=== PATIENT | female | born 1945 | race Hispanic/Latino ===

== ENCOUNTER 2017-05-14 03:40 | Inpatient (IN) | payer MEDICARE ==
[2017-05-14 04:52] LABS: Basophils % (Auto) 0.5 % (0.0-1.8); Eosinophils % (Auto) 5.6 % (0.0-4.3); Hematocrit 37.8 % (30.3-42.9); Hemoglobin 12.7 gm/dl (10.1-14.3); Mean Corpuscular HGB Conc 34 % (30-34); Mean Corpuscular Hemoglobin 29 pg (28-32); Mean Corpuscular Volume 85 fl (79-97); Platelet Count 211 K/mm3 (140-440); Red Blood Count 4.46 M/mm3 (3.65-5.03); Red Cell Distribution Width 13.8 % (13.2-15.2); White Blood Count 9.1 K/mm3 (4.5-11.0)
[2017-05-14 05:04] LABS: Anion Gap 15 mmol/L; BUN/Creatinine Ratio 33; Blood Urea Nitrogen 20 mg/dL (7-17); Calcium 9.3 mg/dL (8.4-10.2); Carbon Dioxide 30 mmol/L (22-30); Glucose 115 mg/dL (65-100); Potassium 3.9 mmol/L (3.6-5.0); Sodium 140 mmol/L (137-145)
[2017-05-14] MEDS ORDERED: REGLAN IV ONE (06:59)
[2017-05-14] MEDS ORDERED: BENADRYL IV ONE (06:59)
[2017-05-14] MEDS ORDERED: TORADOL IV ONE (06:59)
--- NOTE | 2017-05-14 07:34 | XRay Report ---
AP CHEST: HISTORY: chest pain AP view of the chest demonstrates a normal mediastinal and cardiac contour with clear lungs and normal bony and soft tissue structures. IMPRESSION: Unremarkable AP chest.
--- NOTE | 2017-05-14 07:37 | Cat Scan Report ---
CT HEAD WITHOUT CONTRAST: HISTORY: Hypertension, headache. TECHNIQUE: Sequential 2.5mm CT images. COMPARISON: none. FINDINGS: Cerebral Parenchyma: Within normal limits. Cerebellum: Within normal limits. Brainstem: Within normal limits. Ventricles: Normal. Sella: Normal. Extra-axial spaces: Normal. Basal Cisterns: Normal. Intracranial Hemorrhage: None. Midline Shift: None. Calvarium: Normal. Sinuses: Normal. Mastoid Air Cells: Normal. Visualized Orbits: Normal. IMPRESSION: Cranial CT scan within normal limits.
--- NOTE | 2017-05-14 07:43 | Emergency Department Report ---
ED Chest Pain HPI - General Chief Complaint: Chest Pain Stated Complaint: CP Time Seen by Provider: 05/14/17 06:07 Source: patient, EMS Mode of arrival: Stretcher Limitations: No Limitations - History of Present Illness Initial Comments: 71-year-old female with a past medical history dementia, diabetes, migraines, hypertension, and melanoma with lesion removed from back presents to the hospital with complaints of chest pain and uncontrolled hypertension. Patient has dementia and lives alone. She was alert and oriented 3 but does have some memory deficits. She cannot recall why she called EMS but states that her blood pressure was 236/110 upon their arrival. Patient states she was having a constant chest pressure that radiated to the back without aggravating or alleviating factors. Pain rated 9/10 in intensity. She denies shortness of breath, nausea, vomiting, diaphoresis, calf tenderness, or edema. Patient complains of a mild frontal headache and feels like a migraine is coming on in the light is hurting her eyes. Patient does not take aspirin daily. Aspirin 324 mg proceed prior to arrival. Patient denies a cardiac history. Severity scale (0 -10): 8 - Related Data Home Medications Medication Instructions Recorded Confirmed Last Taken Donepezil HCl 1 tab PO DAILY 09/18/13 09/18/13 09/22/13 Flaxseed Oil [Flax Seed Oil] 1 cap PO DAILY 09/18/13 09/18/13 09/22/13 Furosemide 1 tab PO DAILY 09/18/13 09/18/13 09/22/13 Losartan Potassium 1 tab PO DAILY 09/18/13 09/18/13 09/23/13 Metformin HCl 1 tab PO BID 09/18/13 09/18/13 09/22/13 Mv,Levi,Min/Iron/Folic Acid/Lut 1 tab PO DAILY 09/18/13 09/18/13 09/18/13 [Complete Multi Tablet] [place]-3/Dha/Epa/Lut/Zeaxanthin 1 cap PO DAILY 09/18/13 09/18/13 09/18/13 [Advanced Eye Health Softgel] Omeprazole 1 tab PO DAILY 09/18/13 09/18/13 09/18/13 Potassium Chloride [Klor-Con M20] 1 tab PO DAILY 09/18/13 09/18/13 09/18/13 Propranolol HCl [Inderal LA] 1 cap PO DAILY 09/18/13 09/18/13 09/22/13 glipiZIDE [Glipizide ER] 1 tab PO PRN 09/18/13 09/18/13 Unknown Allergies Allergy/AdvReac Type Severity Reaction Status Date / Time No Known Allergies Allergy Verified 05/14/17 04:07 Heart Score - HEART Score History: Slightly suspicious EKG: Non-specific Age: > 65 Risk factors: > 3 risk factors or hx of atherosclerotic disease Troponin: < normal limit HEART Score: 5 ED Review of Systems ROS: Stated complaint: CP Other details as noted in HPI Comment: All other systems reviewed and negative Other: Constitutional: No fevers chills Eyes: No eye pain visual changes ENT: No ear pain or throat pain Neck: Denies pain Respiratory: Denies cough wheezing shortness of breath Cardiovascular: Denies palpitations, syncope GI: Denies abdominal pain, nausea, vomiting, diarrhea : Denies dysuria Musculoskeletal: Denies back pain Skin: Denies rash, lesions, erythema Neurologic: Denies numbness, weakness Psychiatric: Denies suicidal ideation, hallucinations ED Past Medical Hx - Past Medical History Previous Medical History?: Yes Hx Hypertension: Yes ("OVER 20 YRS" PCP) Hx Diabetes: Yes Hx Headaches / Migraines: Yes (MIGRAINES) Hx Dementia: Yes - Surgical History Past Surgical History?: Yes Additional Surgical History: mylenoma removed from back. tonsils. hyster - Social History Smoking Status: Never Smoker Substance Use Type: None - Medications Home Medications: Home Medications Medication Instructions Recorded Confirmed Last Taken Type Donepezil HCl 1 tab PO DAILY 09/18/13 09/18/13 09/22/13 History Flaxseed Oil [Flax Seed Oil] 1 cap PO DAILY 09/18/13 09/18/13 09/22/13 History Furosemide 1 tab PO DAILY 09/18/13 09/18/13 09/22/13 History Losartan Potassium 1 tab PO DAILY 09/18/13 09/18/13 09/23/13 History Metformin HCl 1 tab PO BID 09/18/13 09/18/13 09/22/13 History Mv,Levi,Min/Iron/Folic Acid/Lut 1 tab PO DAILY 09/18/13 09/18/13 09/18/13 History [Complete Multi Tablet] [place]-3/Dha/Epa/Lut/Zeaxanthin 1 cap PO DAILY 09/18/13 09/18/13 09/18/13 History [Advanced [facility] Health Softgel] Omeprazole 1 tab PO DAILY 09/18/13 09/18/13 09/18/13 History Potassium Chloride [Klor-Con M20] 1 tab PO DAILY 09/18/13 09/18/13 09/18/13 History Propranolol HCl [Inderal LA] 1 cap PO DAILY 09/18/13 09/18/13 09/22/13 History glipiZIDE [Glipizide ER] 1 tab PO PRN 09/18/13 09/18/13 Unknown History ED Physical Exam - General Limitations: No Limitations - Other Other exam information: General: No limitations, patient is alert in no acute distress Head exam: Atraumatic, normocephalic Eyes exam: Normal appearance, ENT: Moist mucous membrane, normal oropharynx Neck exam: Normal inspection, full range of motion Respiratory exam: Clear to auscultation bilateral, no wheezes, rales, crackles Cardiovascular: Normal rate and rhythm, chest wall nontender Abdomen: Soft, nondistended, and nontender, with normal bowel sounds, no rebound, or guarding Extremity: Full range of motion normal inspection no deformity, no calf tenderness or leg edema Back: Normal Inspection, full range of motion, no tenderness Neurologic: Alert, oriented x3, cranial nerves intact, no motor or sensory deficit Psychiatric: normal affect, normal mood Skin: Warm, dry, intact ED Course Vital Signs 05/14/17 05/14/17 05/14/17 03:58 04:00 04:15 Pulse Rate 73 73 72 Respiratory 18 18 13 Rate Blood Pressure 187/83 187/83 173/76 O2 Sat by Pulse 97 98 95 Oximetry 05/14/17 05/14/17 05/14/17 04:30 04:45 05:00 Pulse Rate 69 73 68 Respiratory 19 10 L 19 Rate Blood Pressure 167/77 173/85 165/77 O2 Sat by Pulse 94 96 96 Oximetry 05/14/17 05/14/17 05/14/17 05:15 05:30 05:45 Pulse Rate 67 65 67 Respiratory 14 18 22 Rate Blood Pressure 176/84 176/84 168/84 O2 Sat by Pulse 97 98 95 Oximetry 05/14/17 05/14/17 05/14/17 06:00 06:15 06:30 Pulse Rate 67 69 78 Respiratory 20 22 15 Rate Blood Pressure 176/74 175/83 175/83 O2 Sat by Pulse 97 96 97 Oximetry - Reevaluation(s) Reevaluation #1: 05/14/17 07:51 Patient given Benadryl, Toradol, and Reglan for her migraine-like headache. Aspirin received prior to arrival THERESE score - Therese Score Age > 65: (1) Yes Aspirin use within the Past 7 Days: (0) No 3 or more CAD Risk Factors: (1) Yes 2 or more Angina events in past 24 hrs: (1) Yes Known CAD with more than 50% Stenosis: (0) No Elevated Cardiac Markers: (0) No ST Deviation Greater than 0.5mm: (0) No THERESE Score: 3 ED Medical Decision Making - Lab Data Result diagrams: 05/14/17 04:19 05/14/17 04:19 Lab Results 05/14/17 05/14/17 Range/Units 04:19 04:19 WBC 9.1 (4.5-11.0) K/mm3 RBC 4.46 (3.65-5.03) M/mm3 Hgb 12.7 (10.1-14.3) gm/dl Hct 37.8 (30.3-42.9) % MCV 85 (79-97) fl MCH 29 (28-32) pg MCHC 34 (30-34) % RDW 13.8 (13.2-15.2) % Plt Count 211 (140-440) K/mm3 Lymph % (Auto) 18.5 (13.4-35.0) % Parker % (Auto) 8.5 H (0.0-7.3) % Eos % (Auto) 5.6 H (0.0-4.3) % Baso % (Auto) 0.5 (0.0-1.8) % Lymph # 1.7 (1.2-5.4) K/mm3 Parker # 0.8 (0.0-0.8) K/mm3 Eos # 0.5 H (0.0-0.4) K/mm3 Baso # 0.0 (0.0-0.1) K/mm3 Seg Neutrophils % 66.9 (40.0-70.0) % Seg Neutrophils # 6.1 (1.8-7.7) K/mm3 Sodium 140 (137-145) mmol/L Potassium 3.9 (3.6-5.0) mmol/L Chloride 99.0 (98-107) mmol/L Carbon Dioxide 30 (22-30) mmol/L Anion Gap 15 mmol/L BUN 20 H (7-17) mg/dL Creatinine 0.6 L (0.7-1.2) mg/dL Estimated GFR > 60 ml/min BUN/Creatinine Ratio 33 % Glucose 115 H (65-100) mg/dL Calcium 9.3 (8.4-10.2) mg/dL Troponin T < 0.010 (0.00-0.029) ng/mL - EKG Data -: EKG Interpreted by Me (left bundle branch block) EKG shows normal: sinus rhythm, axis (-41), QRS complexes (152), ST-T waves (no ST elevation [place] or T inversion) Rate: normal (rate 73) - EKG Data When compared to previous EKG there are: no significant change (compared to ) - Radiology Data Radiology results: report reviewed Read by radiologist CT head: Normal Chest x-ray: Normal - Medical Decision Making Plans admit patient to the hospital to the coronary risk factors for chest pain workup. No previous cardiac workup will record. - Differential Diagnosis unstable angina, atypical ches pain, [place], unstable angina, PE, migraine, ICh Critical Care Time: No Critical care attestation.: If time is entered above; I have spent that time in minutes in the direct care of this critically ill patient, excluding procedure time. ED Disposition Clinical Impression: Chest pain, Uncontrolled hypertension, Headache, Left bundle branch block Disposition: DC-09 OP ADMIT IP TO THIS HOSP Is pt being admited?: Yes Condition: Stable Time of Disposition: 07:42 (hospitalist/[place])
[2017-05-14] MEDS ORDERED: MORPHINE IV PRN (08:26)
[2017-05-14] MEDS ORDERED: DULCOLAX PR PRN (08:26)
--- NOTE | 2017-05-14 08:38 | History and Physical Report ---
<JAZMÍN ALMEIDA - Last Filed: 05/14/17 13:57> History of Present Illness Date of examination: 05/14/17 Date of admission: 05/14/2017 Chief complaint: Chest pain History of present illness: Patient is a 71-year-old female with a past medical history dementia, diabetes, migraines, hypertension, and melanoma with lesion removed from back presents to the emergency department for complaining of constant midsternal chest pain. She is alert and oriented but got confused at times. She states that the pain began 4 days ago but last night got worst intermittent midsternal chest pain. The pain was located over her substernal somewhat in the left epigastric area. She describes the quality as a chest tightness/pressure with radiation to the back. The painful episodes did not increase in intensity or severity during this time. The patient denies chest pain at present time. Patient stated that she has been nauseated all morning. Patient reported begin lightheaded and dizziness.She denies shortness of breath, and heart palpitations, diaphoresis.At the ED the patient was given nitroglycerin and ASA which she claims helped alleviate the pain somewhat. No aggravating factors. Patient has dementia and lives alone. Past History Past Medical History: diabetes, hypertension, other (dementia,migraines and melanoma) Past Surgical History: No surgical history Social history: Lives alone. denies: smoking, alcohol abuse Family history: hypertension Medications and Allergies Allergies Allergy/AdvReac Type Severity Reaction Status Date / Time No Known Allergies Allergy Verified 05/14/17 04:07 Home Medications Medication Instructions Recorded Confirmed Last Taken Type Donepezil HCl 1 tab PO DAILY 09/18/13 05/14/17 09/22/13 History Furosemide 1 tab PO DAILY 09/18/13 05/14/17 09/22/13 History Metformin HCl 1 tab PO BID 09/18/13 05/14/17 09/22/13 History Potassium Chloride [Klor-Con M20] 1 tab PO DAILY 09/18/13 05/14/17 09/18/13 History Memantine [Namenda] 10 mg PO BID 05/14/17 05/14/17 Unknown History Active Meds: Active Medications Acetaminophen (Tylenol) 650 mg PO Q4H PRN PRN Reason: Pain MILD(1-3)/Fever >100.5/ARGUELLES Aspirin (Aspirin) 325 mg PO DAILY [facility] Bisacodyl (Dulcolax) 10 mg [place] QDAY PRN PRN Reason: Constipation unrelieved by MOM Donepezil HCl (Aricept) 10 mg PO DAILY [facility] Enoxaparin Sodium (Lovenox) 40 mg SUB-Q QDAY [facility] Furosemide (Lasix) mg PO DAILY [facility] Glipizide (Glucotrol Xl) mg PO PRN [facility] Magnesium Hydroxide (Milk Of Magnesia) 30 ml PO Q4H PRN PRN Reason: Constipation Metformin HCl (Glucophage) mg PO BID [facility] Miscellaneous Medication (Flaxseed Oil [Flax Seed Oil]) 1 cap PO DAILY [facility] Miscellaneous Medication (Losartan Potassium [Losartan Potassium]) 1 tab PO DAILY [facility] Miscellaneous Medication (Mv,Levi,Min/Iron/Folic Acid/Lut [Complete Multi Tablet] ) 1 tab PO DAILY [facility] Miscellaneous Medication ([place]-3/Dha/Epa/Lut/Zeaxanthin [Advanced [facility] Health Softgel]) 1 cap PO DAILY [facility] Miscellaneous Medication (Omeprazole [Omeprazole]) 1 tab PO DAILY [facility] Miscellaneous Medication (Propranolol Hcl [Inderal La]) 1 cap PO DAILY [facility] Morphine Sulfate (Morphine) 2 mg IV Q4H PRN PRN Reason: Pain, Moderate (4-6) Nitroglycerin (Nitrostat) 0.4 mg SL .Q5MIN PRN PRN Reason: Chest Pain Potassium Chloride (K-Dur) meq PO DAILY [facility] Review of Systems Constitutional: no weight loss, no weight gain, no fever, no chills Ears, nose, mouth and throat: no nose pain, no nasal congestion, no nasal discharge Breasts: no change in shape, no swelling, no mass Cardiovascular: chest pain, lightheadedness, no palpitations, no rapid/ irregular heart beat, no edema, no syncope, no shortness of breath, no paroxysmal nocturnal dyspnea Respiratory: no cough, no cough with sputum, no excessive sputum, no shortness of breath, no dyspnea on exertion Gastrointestinal: no vomiting, no change in bowel habits, no hematemesis, no coffee ground emesis Rectal: no incontinence, no bleeding Musculoskeletal: no neck pain, no shooting arm pain, no arm numbness/tingling Integumentary: no sores, no wounds, no jaundice Neurological: no numbness, no tingling, no seizures, no syncope Psychiatric: no insomnia, no change in appetite, no suicidal ideation, no disorientation Endocrine: no excessive thirst, no polydipsia, no polyuria, no excessive sweating Hematologic/Lymphatic: no easy bruising, no easy bleeding Allergic/Immunologic: no urticaria, no allergic rhinitis Exam - Constitutional Vitals: Temp Pulse Resp BP Pulse Ox 78 20 175/83 97 05/14/17 06:30 05/14/17 08:16 05/14/17 06:30 05/14/17 06:30 General appearance: Present: no acute distress - EENT Eyes: Present: PERRL ENT: hearing intact, clear oral mucosa - Neck Neck: Present: supple - Respiratory Respiratory effort: normal Respiratory: bilateral: CTA - Cardiovascular Rhythm: regular Heart Sounds: Present: S1 & S2 - Abdominal General gastrointestinal: Present: soft, non-tender Female genitourinary: Present: deferred - Rectal Rectal Exam: deferred - Integumentary Integumentary: Present: clear, warm, dry - Musculoskeletal Musculoskeletal: strength equal bilaterally - Psychiatric Psychiatric: appropriate mood/affect - Neurologic Neurologic: moves all extremities - Allied Health Allied health notes reviewed: nursing Results - Labs CBC & Chem 7: 05/14/17 04:19 05/14/17 04:19 Labs: Laboratory Last Values WBC 9.1 K/mm3 (4.5-11.0) 05/14/17 04:19 RBC 4.46 M/mm3 (3.65-5.03) 05/14/17 04:19 Hgb 12.7 gm/dl (10.1-14.3) 05/14/17 04:19 Hct 37.8 % (30.3-42.9) 05/14/17 04:19 MCV 85 fl (79-97) 05/14/17 04:19 MCH 29 pg (28-32) 05/14/17 04:19 MCHC 34 % (30-34) 05/14/17 04:19 RDW 13.8 % (13.2-15.2) 05/14/17 04:19 Plt Count 211 K/mm3 (140-440) 05/14/17 04:19 Lymph % (Auto) 18.5 % (13.4-35.0) 05/14/17 04:19 [place] % (Auto) 8.5 % (0.0-7.3) H 05/14/17 04:19 Eos % (Auto) 5.6 % (0.0-4.3) H 05/14/17 04:19 Baso % (Auto) 0.5 % (0.0-1.8) 05/14/17 04:19 Lymph # 1.7 K/mm3 (1.2-5.4) 05/14/17 04:19 [place] # 0.8 K/mm3 (0.0-0.8) 05/14/17 04:19 Eos # 0.5 K/mm3 (0.0-0.4) H 05/14/17 04:19 Baso # 0.0 K/mm3 (0.0-0.1) 05/14/17 04:19 Seg Neutrophils % 66.9 % (40.0-70.0) 05/14/17 04:19 Seg Neutrophils # 6.1 K/mm3 (1.8-7.7) 05/14/17 04:19 Sodium 140 mmol/L (137-145) 05/14/17 04:19 Potassium 3.9 mmol/L (3.6-5.0) 05/14/17 04:19 Chloride 99.0 mmol/L (98-107) 05/14/17 04:19 Carbon Dioxide 30 mmol/L (22-30) 05/14/17 04:19 Anion Gap 15 mmol/L 05/14/17 04:19 BUN 20 mg/dL (7-17) H 05/14/17 04:19 Creatinine 0.6 mg/dL (0.7-1.2) L 05/14/17 04:19 Estimated GFR > 60 ml/min 05/14/17 04:19 BUN/Creatinine Ratio 33 % 05/14/17 04:19 Glucose 115 mg/dL (65-100) H 05/14/17 04:19 Calcium 9.3 mg/dL (8.4-10.2) 05/14/17 04:19 Troponin T < 0.010 ng/mL (0.00-0.029) 05/14/17 07:41 - Imaging and Cardiology Abdominal x-ray: image reviewed (unremarkable) CT Scan - head: image reviewed (unremarkable) Assessment and Plan Assessment and plan: Patient is a 71-year-old female with a past medical history dementia, diabetes , migraines, hypertension, and melanoma with lesion removed from back presents to the emergency department for complaining of constant midsternal chest pain. Chest Pain We will admit to telemetry floor. EKG normal sinus rate [address] elevation or T-wave inversion. Negative cardiac enzyme troponin X3 and we will get serial troponin Start on aspirin Nitroglycerin when necessary Morphine ordered for pain Stress test ordered. Chronic diastolic Congestive heart failure Echocardiogram Resume Diuresis, beta blockers and ACEI/ARB Strict I&O's and daily weights Low-sodium/cardiac diet/fluid restriction Closely monitor electrolytes Cardiology evaluation Diabetes mellitus Resume oral antidiabetic medications Accu-Chek before meals and at bedtime Sliding scale insulin/NovoLog ADA carbohydrate consistent diet Hypertension Review of antihypertensive medication IV hydralazine for Closely monitor Blood pressure DVT prophylaxis Heparin Advance Directives: Yes VTE prophylaxis?: Chemical Contraindication Mechanical VTE Prophylaxis: Treatment Not Indicated Plan of care discussed with patient/family: Yes <SYDNEE BRADFORD - Last Filed: 05/14/17 16:29> History of Present Illness Date of admission: 05/14/17 08:26 Medications and Allergies Active Meds: Active Medications Acetaminophen (Tylenol) 650 mg PO Q4H PRN PRN Reason: Pain MILD(1-3)/Fever >100.5/ARGUELLES Aspirin (Aspirin) 325 mg PO DAILY [facility] Last Admin: 05/14/17 14:27 Dose: 325 mg Bisacodyl (Dulcolax) 10 mg PA QDAY PRN PRN Reason: Constipation unrelieved by MOM Chlorthalidone (Thalitone) 12.5 mg PO QDAY [facility] Dextrose (D50w (25gm) Syringe) 50 ml IV PRN PRN PRN Reason: Hypoglycemia Donepezil HCl (Aricept) 10 mg PO DAILY [facility] Last Admin: 05/14/17 14:27 Dose: 10 mg Enoxaparin Sodium (Lovenox) 40 mg SUB-Q QDAY [facility] Last Admin: 05/14/17 14:28 Dose: 40 mg Glipizide (Glucotrol Xl) 5 mg PO DAILY@0800 [facility] Hydralazine HCl (Apresoline) 10 mg IV Q4HR PRN PRN Reason: Blood Pressure >160/100 Insulin Aspart (Novolog) 0 units SUB-Q AC [facility] PRN Reason: Protocol Insulin Aspart (Novolog) 0 units SUB-Q QHS [facility] PRN Reason: Protocol Losartan Potassium (Cozaar) 100 mg PO QDAY [facility] Last Admin: 05/14/17 14:23 Dose: 100 mg Losartan Potassium (Cozaar) 100 mg PO QDAY [facility] Magnesium Hydroxide (Milk Of Magnesia) 30 ml PO Q4H PRN PRN Reason: Constipation Metformin HCl (Glucophage) 500 mg PO BIDDIAB [facility] Miscellaneous Medication (Flaxseed Oil [Flax Seed Oil]) 1 cap PO DAILY [facility] Miscellaneous Medication ([place]-3/Dha/Epa/Lut/Zeaxanthin [Advanced [facility] Softgel]) 1 cap PO DAILY [facility] Morphine Sulfate (Morphine) 2 mg IV Q4H PRN PRN Reason: Pain, Moderate (4-6) Multivitamins/Minerals (Theragran-M Tab) 1 each PO QDAY [facility] Last Admin: 05/14/17 14:24 Dose: 1 each Nitroglycerin (Nitrostat) 0.4 mg SL .Q5MIN PRN PRN Reason: Chest Pain Pantoprazole Sodium (Protonix) 20 mg PO QDAY [facility] Propranolol HCl (Inderal La) 80 mg PO QDAY [facility] Exam - Constitutional Vitals: Temp Pulse Resp BP Pulse Ox 98.2 F 91 H 16 174/88 96 05/14/17 12:09 05/14/17 14:23 05/14/17 12:27 05/14/17 14:23 05/14/17 12:27 Results - Labs CBC & Chem 7: 05/14/17 04:19 05/14/17 04:19 Labs: Laboratory Last Values WBC 9.1 K/mm3 (4.5-11.0) 05/14/17 04:19 RBC 4.46 M/mm3 (3.65-5.03) 05/14/17 04:19 Hgb 12.7 gm/dl (10.1-14.3) 05/14/17 04:19 Hct 37.8 % (30.3-42.9) 05/14/17 04:19 MCV 85 fl (79-97) 05/14/17 04:19 MCH 29 pg (28-32) 05/14/17 04:19 MCHC 34 % (30-34) 05/14/17 04:19 RDW 13.8 % (13.2-15.2) 05/14/17 04:19 Plt Count 211 K/mm3 (140-440) 05/14/17 04:19 Lymph % (Auto) 18.5 % (13.4-35.0) 05/14/17 04:19 Greene % (Auto) 8.5 % (0.0-7.3) H 05/14/17 04:19 Eos % (Auto) 5.6 % (0.0-4.3) H 05/14/17 04:19 Baso % (Auto) 0.5 % (0.0-1.8) 05/14/17 04:19 Lymph # 1.7 K/mm3 (1.2-5.4) 05/14/17 04:19 [place] # 0.8 K/mm3 (0.0-0.8) 05/14/17 04:19 Eos # 0.5 K/mm3 (0.0-0.4) H 05/14/17 04:19 Baso # 0.0 K/mm3 (0.0-0.1) 05/14/17 04:19 Seg Neutrophils % 66.9 % (40.0-70.0) 05/14/17 04:19 Seg Neutrophils # 6.1 K/mm3 (1.8-7.7) 05/14/17 04:19 Sodium 140 mmol/L (137-145) 05/14/17 04:19 Potassium 3.9 mmol/L (3.6-5.0) 05/14/17 04:19 Chloride 99.0 mmol/L (98-107) 05/14/17 04:19 Carbon Dioxide 30 mmol/L (22-30) 05/14/17 04:19 Anion Gap 15 mmol/L 05/14/17 04:19 BUN 20 mg/dL (7-17) H 05/14/17 04:19 Creatinine 0.6 mg/dL (0.7-1.2) L 05/14/17 04:19 Estimated GFR > 60 ml/min 05/14/17 04:19 BUN/Creatinine Ratio 33 % 05/14/17 04:19 Glucose 115 mg/dL (65-100) H 05/14/17 04:19 POC Glucose 109 (70-105) H 05/14/17 12:26 Calcium 9.3 mg/dL (8.4-10.2) 05/14/17 04:19 Troponin T < 0.010 ng/mL (0.00-0.029) 05/14/17 11:14 Assessment and Plan Assessment and plan: I saw and evaluated the patient. I agree with the findings and the plan of care as documented in the Nurse Practitioner's H/P note.
[2017-05-14] MEDS ORDERED: GLUCOTROL XL PO SCH (09:00)
[2017-05-14] MEDS ORDERED: NITROSTAT SL PRN (09:00)
[2017-05-14] MEDS ORDERED: ZEAXANTHIN PO SCH (10:00)
[2017-05-14] MEDS ORDERED: DHA PO SCH (10:00)
[2017-05-14] MEDS ORDERED: EPA PO SCH (10:00)
[2017-05-14] MEDS ORDERED: IRON PO SCH (10:00)
[2017-05-14] MEDS ORDERED: LOSARTAN POTASSIUM PO SCH (10:00)
[2017-05-14] MEDS ORDERED: K-DUR PO SCH (10:00)
[2017-05-14] MEDS ORDERED: OMEGA PO SCH (10:00)
[2017-05-14] MEDS ORDERED: FLAXSEED OIL PO SCH (10:00)
[2017-05-14] MEDS ORDERED: LUT PO SCH ×2 (10:00)
[2017-05-14] MEDS ORDERED: MILK OF MAGNESIA PO PRN (10:00)
[2017-05-14] MEDS ORDERED: FOLIC ACID PO SCH (10:00)
[2017-05-14] MEDS ORDERED: PROPRANOLOL HCL PO SCH (10:00)
[2017-05-14] MEDS ORDERED: LASIX PO SCH (10:00)
[2017-05-14] MEDS ORDERED: OMEPRAZOLE PO SCH (10:00)
[2017-05-14] MEDS ORDERED: MV CAL MIN PO SCH (10:00)
[2017-05-14] MEDS ORDERED: LEXISCAN IV ONE ×2 (10:10→10:11)
--- NOTE | 2017-05-14 12:18 | Consultation ---
History of Present Illness Consult date: 05/14/17 Medications and Allergies Allergies Allergy/AdvReac Type Severity Reaction Status Date / Time No Known Allergies Allergy Verified 05/14/17 04:07 Home Medications Medication Instructions Recorded Confirmed Last Taken Type Donepezil HCl 1 tab PO DAILY 09/18/13 05/14/17 09/22/13 History Furosemide 1 tab PO DAILY 09/18/13 05/14/17 09/22/13 History Metformin HCl 1 tab PO BID 09/18/13 05/14/17 09/22/13 History Potassium Chloride [Klor-Con M20] 1 tab PO DAILY 09/18/13 05/14/17 09/18/13 History Memantine [Namenda] 10 mg PO BID 05/14/17 05/14/17 Unknown History Active Meds: Active Medications Acetaminophen (Tylenol) 650 mg PO Q4H PRN PRN Reason: Pain MILD(1-3)/Fever >100.5/ARGUELLES Aspirin (Aspirin) 325 mg PO DAILY [facility] Bisacodyl (Dulcolax) 10 mg [place] QDAY PRN PRN Reason: Constipation unrelieved by MOM Chlorthalidone (Thalitone) 12.5 mg PO QDAY [facility] Donepezil HCl (Aricept) 10 mg PO DAILY [facility] Enoxaparin Sodium (Lovenox) 40 mg SUB-Q QDAY [facility] Glipizide (Glucotrol Xl) mg PO PRN [facility] Hydralazine HCl (Apresoline) 10 mg IV Q4HR PRN PRN Reason: Blood Pressure Losartan Potassium (Cozaar) 100 mg PO QDAY [facility] Magnesium Hydroxide (Milk Of Magnesia) 30 ml PO Q4H PRN PRN Reason: Constipation Metformin HCl (Glucophage) mg PO BID [facility] Miscellaneous Medication (Flaxseed Oil [Flax Seed Oil]) 1 cap PO DAILY [facility] Miscellaneous Medication (Losartan Potassium [Losartan Potassium]) 1 tab PO DAILY [facility] Miscellaneous Medication (Mv,Levi,Min/Iron/Folic Acid/Lut [Complete Multi Tablet] ) 1 tab PO DAILY [facility] Miscellaneous Medication ([place]-3/Dha/Epa/Lut/Zeaxanthin [Advanced Eye Health Softgel]) 1 cap PO DAILY [facility] Miscellaneous Medication (Omeprazole [Omeprazole]) 1 tab PO DAILY [facility] Morphine Sulfate (Morphine) 2 mg IV Q4H PRN PRN Reason: Pain, Moderate (4-6) Nitroglycerin (Nitrostat) 0.4 mg SL .Q5MIN PRN PRN Reason: Chest Pain Propranolol HCl (Inderal La) 80 mg PO QDAY [facility] Physical Examination Vital Signs Pulse Resp BP Pulse Ox 73 18 187/83 97 05/14/17 03:58 05/14/17 03:58 05/14/17 03:58 05/14/17 03:58 Results 05/14/17 04:19 05/14/17 04:19 CBC 05/14/17 Range/Units 04:19 WBC 9.1 (4.5-11.0) K/mm3 RBC 4.46 (3.65-5.03) M/mm3 Hgb 12.7 (10.1-14.3) gm/dl Hct 37.8 (30.3-42.9) % Plt Count 211 (140-440) K/mm3 Lymph # 1.7 (1.2-5.4) K/mm3 [place] # 0.8 (0.0-0.8) K/mm3 Eos # 0.5 H (0.0-0.4) K/mm3 Baso # 0.0 (0.0-0.1) K/mm3 Comprehensive Metabolic Panel 05/14/17 Range/Units 04:19 Sodium 140 (137-145) mmol/L Potassium 3.9 (3.6-5.0) mmol/L Chloride 99.0 (98-107) mmol/L Carbon Dioxide 30 (22-30) mmol/L BUN 20 H (7-17) mg/dL Creatinine 0.6 L (0.7-1.2) mg/dL Glucose 115 H (65-100) mg/dL Calcium 9.3 (8.4-10.2) mg/dL Assessment and Plan Detailed Cardiology consult dictated.
[2017-05-14] MEDS ORDERED: D50W (25GM) Syringe IV PRN (12:35)
[2017-05-14] MEDS ORDERED: NON-FORMULARY (Omeprazole [Omeprazole] 20 MG) PO SCH (13:43)
[2017-05-14] MEDS: COZAAR PO SCH (14:23)
[2017-05-14] MEDS: THERAGRAN-M Tab PO SCH (14:24)
[2017-05-14] MEDS: ARICEPT PO SCH (14:27)
[2017-05-14] MEDS: ASPIRIN PO SCH (14:27)
[2017-05-14] MEDS: LOVENOX SUB-Q SCH (14:28)
--- NOTE | 2017-05-14 14:41 | Event Note ---
Date: 05/14/17 Lexiscan MPI stress test this AM negative for ischemia, normal EF. Echo reviewed with NAF. Currently stable cardiac status. Pt may discharge home from cardiology standpoint. Recommend follow up in our office with Bre Belle NP, within 1-2 weeks of hospital discharge ([phone]). Jyoti CONNOLLY NP / DR. COLON
[2017-05-14] MEDS: INDERAL LA PO SCH (16:52)
[2017-05-14] MEDS: GLUCOPHAGE PO SCH (16:52)
[2017-05-14] MEDS: TYLENOL PO PRN (16:53)
[2017-05-14] MEDS: NOVOLOG SUB-Q SCH (17:45)
[2017-05-14] MEDS ORDERED: NOVOLOG SUB-Q SCH (22:00)
[2017-05-14] MEDS: APRESOLINE IV PRN (23:31)
[2017-05-15] MEDS: APRESOLINE IV PRN (05:50)
[2017-05-15] MEDS: TYLENOL PO PRN ×2 (05:51→11:16)
[2017-05-15 05:54] VITALS: BP 172/76
--- NOTE | 2017-05-15 06:17 | Treadmill Report ---
This is a single isotope dual study myocardial perfusion scan report. AGE: 71. SEX: Female. REFERRING PHYSICIAN: Dr. Vidal Ramesh, hospitalist. PROCEDURE: The patient received 10 mCi of technetium 99m Myoview intravenously under resting condition. Resting myocardial perfusion scan was done. Subsequently, the patient underwent Lexiscan stress test as per the protocol. During Lexiscan stress, the patient received 28 mCi of technetium 99m Myoview intravenously. After 30-60 minutes, post stress images were done. Computerized reconstruction images were performed for analysis. The post-stress images did not reveal any perfusion abnormality. Gated study revealed low normal left ventricular systolic function with EF around 50%. The resting images were also normal. CONCLUSION: 1. No perfusion abnormality of the left ventricular myocardium was demonstrated in the resting as well as stress images obtained after the patient underwent Lexiscan stress test. 2. No wall motion abnormality. 3. Low normal left ventricular systolic function with LVEF around 50%. JOB# [id number] [facility]
[2017-05-15 06:20] LABS: Basophils % (Auto) 0.7 % (0.0-1.8); Eosinophils % (Auto) 5.8 % (0.0-4.3); Hematocrit 38.9 % (30.3-42.9); Mean Corpuscular HGB Conc 33 % (30-34); Mean Corpuscular Hemoglobin 28 pg (28-32); Mean Corpuscular Volume 84 fl (79-97); Platelet Count 235 K/mm3 (140-440); Red Blood Count 4.61 M/mm3 (3.65-5.03); Red Cell Distribution Width 14.3 % (13.2-15.2); White Blood Count 6.6 K/mm3 (4.5-11.0)
[2017-05-15 06:38] LABS: Anion Gap 16 mmol/L; BUN/Creatinine Ratio 28; Blood Urea Nitrogen 11 mg/dL (7-17); Calcium 9.1 mg/dL (8.4-10.2); Carbon Dioxide 23 mmol/L (22-30); Chloride 104.9 mmol/L (98-107); Glucose 143 mg/dL (65-100); Potassium 3.8 mmol/L (3.6-5.0); Sodium 140 mmol/L (137-145)
[2017-05-15] MEDS ORDERED: GLUCOTROL XL PO SCH ×2 (08:00)
[2017-05-15] MEDS: NOVOLOG SUB-Q SCH ×2 (08:21→12:22)
--- NOTE | 2017-05-15 09:07 | Discharge Summary ---
<BECKYJAZMÍN HARPER - Last Filed: 05/15/17 12:27> Providers - Providers Date of Admission: 05/14/17 08:26 Date of discharge: 05/15/17 Attending physician: ALISIA MONTES 05/14/17 08:30 Consult to Physician [CONS] Routine Consulting Provider: KATHERYN MITCHELL Reason For Exam: chest pain Place consult to:: CARD Notified:: N Time called:: 09:35 Primary care physician: ALONDRA BRUCE MD Hospitalization Condition: Good Hospital course: Patient is a 71-year-old female with a past medical history dementia, diabetes , migraines, hypertension, and melanoma with lesion removed from back presents to the emergency department for complaining of constant midsternal chest pain.Patient presented with atypical chest pain, ACS was ruled out, stress test normal MPI, negative cardiac enzymes, ECGs shows normal sinus rythm, Echocardiogram with ef of 50%-55%. CXR WNL. Patient chest pain probably from uncontrolled hypertension. She was treated with IV fluid hydration and antihypertensive medications. Patient is clinically improved and stable for discharge. Patient advised to follow-up with her primary care provider. Discharge Diagnosed Chest Pain due to uncontrolled hypertension Chronic diastolic Congestive heart failure Diabetes mellitus Hypertension Disposition: DC-01 TO HOME OR SELFCARE Time spent for discharge: 35 minutes Core Measure Documentation - Palliative Care Palliative Care/ Comfort Measures: Not Applicable - Core Measures Any of the following diagnoses?: none Exam - Constitutional Vitals: Temp Pulse Resp BP Pulse Ox 97.5 F L 65 18 172/76 98 05/14/17 23:53 05/15/17 05:50 05/15/17 04:17 05/15/17 05:50 05/15/17 04:17 General appearance: Present: no acute distress - EENT Eyes: Present: PERRL ENT: hearing intact - Neck Neck: Present: supple - Respiratory Respiratory effort: normal Respiratory: bilateral: CTA - Cardiovascular Rhythm: regular Heart Sounds: Present: S1 & S2 - Abdominal General gastrointestinal: Present: soft, non-tender Female genitourinary: Present: deferred - Rectal Rectal Exam: deferred - Integumentary Integumentary: Present: clear, warm, dry - Musculoskeletal Musculoskeletal: gait normal, strength equal bilaterally - Psychiatric Psychiatric: appropriate mood/affect - Neurologic Neurologic: moves all extremities - Allied Health Allied health notes reviewed: nursing Plan Diet: low fat, low cholesterol, low salt Follow up with: ALONDRA BRUCE MD [Primary Care Provider] - 3-5 Days Prescriptions: Aspirin [Aspirin EC] 81 mg PO DAILY 30 Days tablet. hydrALAZINE [Apresoline TAB] 100 mg PO TID #90 tab Losartan [Cozaar] 100 mg PO QDAY 30 Days tablet <JYOTIALISIA Handy - Last Filed: 05/16/17 00:09> Providers - Providers Date of Admission: 05/14/17 08:26 Attending physician: ALISIA MONTES 05/14/17 08:30 Consult to Physician [CONS] Routine Consulting Provider: KATHERYN MITCHELL Reason For Exam: chest pain Place consult to:: CARD Notified:: N Time called:: 09:35 Primary care physician: ALONDRA BRUCE MD Hospitalization Hospital course: I saw and evaluated the patient. I agree with the findings and the plan of care as documented in the Nurse Practitioner's~note. Exam - Constitutional Vitals: Temp Pulse Resp BP Pulse Ox 97.5 F L 84 18 172/76 98 05/14/17 23:53 05/15/17 09:00 05/15/17 04:17 05/15/17 05:50 05/15/17 04:17
--- NOTE | 2017-05-15 09:11 | Consultation ---
CARDIOLOGY CONSULTATION REFERRING PHYSICIAN: Vidal Ramesh M.D., Hospitalist HISTORY OF PRESENT ILLNESS: The patient is a 71-year-old mildly obese (BMI of 31.8) pleasant white woman with history of multiple medical problems, hypertension, type 2 diabetes mellitus, dementia, chronic migraine, GERD who was admitted with the upper and mid abdominal pain. No history of chest pain or shortness of breath. She gives history of some dizziness and nausea. No history of syncope. Serial troponins were negative and myocardial infarction has been ruled out. Her EKG revealed complete left bundle-brunch block. A CAT scan of the head was normal. She also gives history of hypercholesterolemia in the past (she is not on any antilipid agent at this time). She had accelerated hypertension (at the time of admission, it was 236/110 mmHg). She had Lexistress nuclear scan today and results are pending at this time. Her most recent blood pressure is 190/93 mmHg. PAST MEDICAL HISTORY: No history of CAD or myocardial infarction in the past. She has had hysterectomy and cholecystectomy in the past. She also gives a history of obstructive sleep apnea and she was using CPAP until 2 years ago (not on CPAP at this time). SOCIAL HISTORY: She is not a smoker, not an alcoholic. No history of drug abuse. FAMILY HISTORY: As per her, father had myocardial infarction in his 60s. Further details are not known at this time. ALLERGIES: She is not allergic to any medications. REVIEW OF SYSTEMS: CARDIOVASCULAR SYSTEM: As described in the history. NEUROLOGICAL: As described in the history. METABOLISM AND ENDOCRINOLOGY: As described in the history. GASTROINTESTINAL SYSTEM: As described in the history. GENITOURINARY SYSTEM: As described in the history. PULMONARY: As described in the history. Review of rest of the 10 systems is negative. MEDICATIONS: Aspirin 325 mg p.o. daily, Aricept 10 mg p.o. daily, Lovenox 40 mg subcutaneous daily, furosemide 40 mg p.o. daily, metformin 500 mg p.o. b.i.d., omega 3 fatty acids, omeprazole 20 mg p.o. daily, propranolol LA 80 mg p.o. daily. PHYSICAL EXAMINATION: GENERAL: The patient is a 71-year-old elderly pleasant, mildly obese white woman, free from pain at this time. VITAL SIGNS: Pulse 96 per minute regular, blood pressure 190/93 mmHg, respirations 16 per minute. NEUROLOGIC: She is alert and oriented x 3. She has problem in recollecting past events secondary to dementia. HEENT: Negative. NECK: Supple, no JVD, no bruit, no thyromegaly. HEART: PMI shifted laterally and is forcible in nature, no palpable thrills. Auscultation of heart reveals S1, S2 heard; S2 is loud, S4 is heard. No S3. Grade 2/6 harsh ejection systolic murmur is heard over the precardium. Peripheral pulses felt. No edema. LUNGS: Bilateral air entry good and equal. No bronchial breathing, no wheezing. ABDOMEN: Soft, benign. No organomegaly. SKIN: Negative. BONE AND JOINTS: Negative. LABORATORY DATA: Cardiac enzymes as described in the history, potassium 3.9, BUN and creatinine 20 and 0.6, sodium 140, chloride 99, CO2 of 30, glucose 115. CBC: Platelet count within normal limits. DIAGNOSTIC DATA: Chest x-ray, AP 1 view negative. EKG normal sinus rhythm, complete left bundle-brunch block. Repeat EKG showed the same changes. IMPRESSION: 1. Abdominal pain - Myocardial infarction ruled out. 2. History of hypertension and hypercholesterolemia. 3. Abnormal EKG - Complete left bundle-branch block. 4. Family history of myocardial infarction. 5. History of chronic migraine. 6. Type 2 diabetes mellitus. 7. Mild obesity. 8. Accelerated hypertension. RECOMMENDATIONS: 1. Blood pressure control - We will place her back on her home medication. 2. Followup Yane-nuclear myocardial stress scan. 3. We will order echocardiogram to assess left ventricular function. 4. Further recommendations will follow. JOB# [id number] [facility]
[2017-05-15] MEDS ORDERED: PROTONIX PO SCH (10:00)
[2017-05-15] MEDS ORDERED: THALITONE PO SCH (10:00)
[2017-05-15] MEDS ORDERED: COZAAR PO SCH (10:00)
[2017-05-15] MEDS: COZAAR PO SCH (10:19)
[2017-05-15] MEDS: LOVENOX SUB-Q SCH (11:15)
[2017-05-15] MEDS: THERAGRAN-M Tab PO SCH (11:16)
[2017-05-15] MEDS: ARICEPT PO SCH (11:16)
[2017-05-15] MEDS: INDERAL LA PO SCH (11:17)
[2017-05-15] MEDS: ASPIRIN PO SCH (11:17)
[2017-05-15] MEDS: GLUCOPHAGE PO SCH (11:29)
[2017-05-15] MEDS ORDERED: APRESOLINE PO SCH (14:00)
--- NOTE | 2017-05-15 15:22 | Query- General ---
Deayulia Morales____Domitila Date:__05/15/17 Gang Supervisor/CDS:____Arletit Phone#:___[phone] Exercise your independent professional judgment when responding to this query. Questions asked do not imply a particular answer is desired or expected. We greatly appreciate your clarification on this issue. Clinical Documentation States: 71 year old female was admitted on 05/14/17 The H&P (Dr. Ramesh) states " Patient is a 71-year-old female with a past medical history dementia, diabetes, migraines, hypertension, and melanoma with lesion removed from back presents to the emergency department for complaining of constant midsternal chest pain " The discharge summary (Jarrett) states " Chest Pain due to uncontrolled hypertension Hypertension " Clinical Findings Show (include reference to source document): Blood pressure: 199/101 Given the above clinical scenario can you please provide an appropriate diagnosis based on your knowledge of the patient: PHYSICIAN RESPONSE: [ x ] Hypertensive urgency [ ] Hypertensive emergency [ ] Hypertensive crisis [ ] Other (Please specify) [ ] Clinically undeterminable Present on Admission: [x] Yes (Y) [ ] Clinically undeterminable (W) [ ]No(N) Please also document response in your Progress Notes and/or Discharge Summary and indicate if the condition was present on admission. MUMTAZ
== END 2017-05-15 17:35 | disposition home or self-care (01) | DRG 305 ==
LOC: ED 03:40 → 4A 08:26
PROVIDERS: ADMIT Internal Medicine; ATTEND Internal Medicine
DX: I16.0 Hypertensive urgency (principal); I50.32 Chronic diastolic (congestive) heart failure; E78.00 Pure hypercholesterolemia, unspecified; E66.9 Obesity, unspecified; I11.0 Hypertensive heart disease with heart failure; E11.9 Type 2 diabetes mellitus without complications; G43.909 Migraine, unspecified, not intractable, without status migrainosus; F03.90 Unspecified dementia, unspecified severity, without behavioral disturbance, psychotic disturbance, mood disturbance, and anxiety; I44.7 Left bundle-branch block, unspecified; Z82.49 Family history of ischemic heart disease and other diseases of the circulatory system; Z79.899 Other long term (current) drug therapy; Z68.31 Body mass index [BMI] 31.0-31.9, adult
CPT/HCPCS: 36415; 70450; 71010; 78452; 80048; 82962; 84484; 85025; 93005; 93010; 93017; 93306; 96374; 96375; A9502; J0360; J1200; J1650; J1885; J2765; J2785

== ENCOUNTER 2017-05-18 18:54 | Emergency (ER) | payer MEDICARE ==
[2017-05-18 20:26] LABS: Basophils % (Auto) 1.5 % (0.0-1.8); Eosinophils % (Auto) 2.2 % (0.0-4.3); Hematocrit 38.2 % (30.3-42.9); Hemoglobin 12.5 gm/dl (10.1-14.3); Mean Corpuscular HGB Conc 33 % (30-34); Mean Corpuscular Hemoglobin 28 pg (28-32); Mean Corpuscular Volume 85 fl (79-97); Platelet Count 266 K/mm3 (140-440); Red Blood Count 4.49 M/mm3 (3.65-5.03); White Blood Count 6.2 K/mm3 (4.5-11.0)
--- NOTE | 2017-05-18 20:38 | Emergency Department Report ---
ED Chest Pain HPI - General Chief Complaint: Pain General Stated Complaint: CHEST PAIN Time Seen by Provider: 05/18/17 20:11 Source: patient, RN/MD Mode of arrival: Ambulatory Limitations: No Limitations - History of Present Illness Initial Comments: 71 year-old female presents to the emergency department by EMS from home with complaint of some lower chest, substernal pressure that has been going on since late afternoon. She received a full dose aspirin and a sublingual nitroglycerin in route with EMS with some improvement of her discomfort. When she is having the pressure she also feels like there is some shortness of breath. She denies any nausea, vomiting, back pain or diaphoresis. She has a past history of arthritis, dementia, diabetes, GERD, migraine headaches, hypertension and a previous history of malignant melanoma. Her primary care physician is Dr. Churchill in [place]. She does not have a money manager. She does not use tobacco or illicit drugs. She was recently admitted and discharged from [facility] for similar symptoms. She had a negative stress test and an echocardiogram that showed normal LV function and normal EF and was recommended to follow-up in 1-2 weeks with [facility] - Related Data Home Medications Medication Instructions Recorded Confirmed Last Taken Donepezil HCl 1 tab PO DAILY 09/18/13 05/14/17 09/22/13 Furosemide 1 tab PO DAILY 09/18/13 05/14/17 09/22/13 Metformin HCl 1 tab PO BID 09/18/13 05/14/17 09/22/13 Potassium Chloride [Klor-Con M20] 1 tab PO DAILY 09/18/13 05/14/17 09/18/13 Memantine [Namenda] 10 mg PO BID 05/14/17 05/14/17 Unknown Previous Rx's Medication Instructions Recorded Last Taken Type Aspirin [Aspirin EC] 81 mg PO DAILY 30 Days tablet. 05/15/17 Unknown Rx Chlorthalidone [Thalitone] 12.5 mg PO QDAY tablet 05/15/17 Unknown Rx Flaxseed Oil [Flax Seed Oil] 1 cap PO DAILY 05/15/17 Unknown Rx Losartan [Cozaar] 100 mg PO QDAY 30 Days tablet 05/15/17 Unknown Rx [place]-3/Dha/Epa/Lut/Zeaxanthin 1 cap PO DAILY 05/15/17 Unknown Rx [[facility] Softgel] Pantoprazole [Protonix TAB] 20 mg PO QDAY tablet. 05/15/17 Unknown Rx Propranolol LA [Inderal LA] 80 mg PO QDAY capsule 05/15/17 Unknown Rx glipiZIDE XL [Glucotrol Xl] 5 mg PO DAILY@0800 tablet 05/15/17 Unknown Rx hydrALAZINE [Apresoline TAB] 100 mg PO TID #90 tab 05/15/17 Unknown Rx Allergies Allergy/AdvReac Type Severity Reaction Status Date / Time No Known Allergies Allergy Verified 05/14/17 04:07 Heart Score - HEART Score History: Slightly suspicious EKG: Non-specific Age: > 65 Risk factors: 1-2 risk factors Troponin: < normal limit HEART Score: 4 - Critical Actions Critical Actions: 4-6 pts:12-16.6% risk of adverse cardiac event. Should be admitted ED Review of Systems ROS: Stated complaint: CHEST PAIN Other details as noted in HPI Comment: All other systems reviewed and negative Constitutional: denies: chills, fever Eyes: denies: eye pain, eye discharge, vision change ENT: denies: ear pain, throat pain Respiratory: shortness of breath. denies: cough Cardiovascular: chest pain. denies: palpitations Gastrointestinal: denies: abdominal pain, nausea, diarrhea Genitourinary: denies: urgency, dysuria, discharge Musculoskeletal: myalgia. denies: back pain, joint swelling, arthralgia Skin: denies: rash, lesions Neurological: denies: headache, weakness, paresthesias ED Past Medical Hx - Past Medical History Previous Medical History?: Yes Hx Hypertension: Yes ("OVER 20 YRS" PCP) Hx Diabetes: Yes Hx GERD: Yes Hx Arthritis: Yes Hx Headaches / Migraines: Yes (MIGRAINES) Hx Dementia: Yes Additional medical history: malignant melanoma. memory issues - Surgical History Additional Surgical History: mylenoma removed from back. tonsils. hyster - Social History Smoking Status: Never Smoker - Medications Home Medications: Home Medications Medication Instructions Recorded Confirmed Last Taken Type Donepezil HCl 1 tab PO DAILY 09/18/13 05/14/17 09/22/13 History Furosemide 1 tab PO DAILY 09/18/13 05/14/17 09/22/13 History Metformin HCl 1 tab PO BID 09/18/13 05/14/17 09/22/13 History Potassium Chloride [Klor-Con M20] 1 tab PO DAILY 09/18/13 05/14/17 09/18/13 History Memantine [Namenda] 10 mg PO BID 05/14/17 05/14/17 Unknown History Aspirin [Aspirin EC] 81 mg PO DAILY 30 Days tablet. 05/15/17 Unknown Rx Chlorthalidone [Thalitone] 12.5 mg PO QDAY tablet 05/15/17 Unknown Rx Flaxseed Oil [Flax Seed Oil] 1 cap PO DAILY 05/15/17 Unknown Rx Losartan [Cozaar] 100 mg PO QDAY 30 Days tablet 05/15/17 Unknown Rx [place]-3/Dha/Epa/Lut/Zeaxanthin 1 cap PO DAILY 05/15/17 Unknown Rx [[facility] Softgel] Pantoprazole [Protonix TAB] 20 mg PO QDAY tablet. 05/15/17 Unknown Rx Propranolol LA [Inderal LA] 80 mg PO QDAY capsule 05/15/17 Unknown Rx glipiZIDE XL [Glucotrol Xl] 5 mg PO DAILY@0800 tablet 05/15/17 Unknown Rx hydrALAZINE [Apresoline TAB] 100 mg PO TID #90 tab 05/15/17 Unknown Rx ED Physical Exam - General Limitations: No Limitations - Other Other exam information: GENERAL: The patient is well-developed well-nourished. HENT: Normocephalic. Atraumatic. Patient has moist mucous membranes. EYES: Extraocular motions are intact. Pupils equal reactive to light bilaterally. NECK: Supple. Trachea is midline. CHEST/LUNGS: Clear to auscultation. There is no respiratory distress noted. HEART/CARDIOVASCULAR: Regular. There is no tachycardia. There is no murmur. ABDOMEN: Abdomen is soft, nontender. Patient has normal bowel sounds. There is no abdominal distention. SKIN: Skin is warm and dry. NEURO: The patient is awake, alert. The patient is cooperative. The patient has no focal neurologic deficits. The patient has normal speech. MUSCULOSKELETAL: There is no tenderness or deformity. There is no limitation range of motion. There is no evidence of acute injury. ED Course Vital Signs 05/18/17 05/18/17 05/18/17 17:34 17:45 19:09 Temperature Pulse Rate 98 H 104 H Respiratory 17 12 Rate Blood Pressure 166/72 174/96 133/67 O2 Sat by Pulse 96 95 96 Oximetry 05/18/17 05/18/17 05/18/17 19:12 19:15 19:30 Temperature 98.3 F Pulse Rate 85 Respiratory Rate Blood Pressure 133/67 161/82 142/71 O2 Sat by Pulse 96 97 96 Oximetry 05/18/17 05/18/17 05/18/17 19:45 20:00 20:15 Temperature Pulse Rate 76 76 Respiratory 17 12 Rate Blood Pressure 144/76 154/64 134/77 O2 Sat by Pulse 97 98 97 Oximetry 05/18/17 05/18/17 05/18/17 20:30 20:45 21:00 Temperature Pulse Rate 80 74 77 Respiratory 26 H 22 20 Rate Blood Pressure 130/78 144/82 148/86 O2 Sat by Pulse 97 95 94 Oximetry 05/18/17 05/18/17 05/18/17 21:15 21:30 21:45 Temperature Pulse Rate 72 80 78 Respiratory 19 11 L 21 Rate Blood Pressure 160/77 121/99 121/99 O2 Sat by Pulse 96 95 94 Oximetry 05/18/17 05/18/17 05/18/17 22:00 22:15 22:30 Temperature Pulse Rate 69 68 70 Respiratory 12 14 22 Rate Blood Pressure 133/74 130/72 136/62 O2 Sat by Pulse 94 92 91 Oximetry 05/18/17 05/18/17 05/19/17 22:45 23:57 00:00 Temperature Pulse Rate Respiratory Rate Blood Pressure 130/61 119/42 134/65 O2 Sat by Pulse 96 94 Oximetry - Consultations Consultation #1: I spoke to the money manager on-call, Dr. Ryan, who remembers the patient from her visit a few days ago and says that with her negative stress test and negative echocardiogram that the patient appears safe for discharge home to follow up this week outpatient in their office. 05/19/17 00:30 THERESE score - Therese Score Age > 65: (1) Yes Aspirin use within the Past 7 Days: (0) No 3 or more CAD Risk Factors: (0) No 2 or more Angina events in past 24 hrs: (1) Yes Known CAD with more than 50% Stenosis: (0) No Elevated Cardiac Markers: (0) No ST Deviation Greater than 0.5mm: (0) No THERESE Score: 2 ED Medical Decision Making - Lab Data Result diagrams: 05/18/17 19:42 05/18/17 19:41 - EKG Data -: EKG Interpreted by Me EKG shows normal: sinus rhythm, axis, intervals (prolonged QTC), QRS complexes ( left bundle branch block), ST-T waves Rate: normal - EKG Data When compared to previous EKG there are: no significant change Interpretation: unchanged when compared t (05/14/17) - Radiology Data Radiology results: image reviewed interpreted by me: Chest x-ray does not show any acute process. There are no pleural effusions, obvious pneumonia and there is no pneumothorax. - Medical Decision Making The patient is feeling much better and currently denies any chest pain or pressure. Her muscle spasms have also stopped. Labs have been unremarkable thus far including negative troponins 2 and a negative d-dimer. EKG shows left bundle branch block but no ST elevation MD and unchanged previous EKG. I spoke with cardiology who feels that the patient is safe for discharge home secondary to her recent negative workup. The patient is been encouraged to return with any return of her chest pain but otherwise follow up outpatient with money manager and her primary care physician. She understands and agrees to the plan. - Differential Diagnosis MD, PE, costochondritis, GERD Critical Care Time: No Critical care attestation.: If time is entered above; I have spent that time in minutes in the direct care of this critically ill patient, excluding procedure time. ED Disposition Clinical Impression: Left bundle branch block Chest pain Qualifiers: Chest pain type: unspecified Qualified Code(s): R07.9 - Chest pain, unspecified Disposition: DC- TO HOME OR SELFCARE Is pt being admited?: No Condition: Stable Instructions: Chest Pain (ED) Additional Instructions: Please follow-up with your primary care physician in the next few days. I have also given a referral for a local money manager, Dr Soriano, to follow up regarding your chest discomfort. Return to the emergency Department with any return of her chest pain, any worsening of her symptoms or any acute distress. Referrals: PRIMARY CAREMD [Referring] - 3-5 Days RUT BAZAN MD [Staff Physician] - 3-5 Days Time of Disposition: 00:12
--- NOTE | 2017-05-18 20:38 | XRay Report ---
FINAL REPORT EXAM: XR CHEST 1V AP HISTORY: CP TECHNIQUE: upright single view chest PRIORS: None. FINDINGS: Cardiac and mediastinal contours are unremarkable. No focal pulmonary infiltrate is identified. No pleural fluid collection seen. Pulmonary vasculature is unremarkable. IMPRESSION: Negative single-view chest
[2017-05-18 20:41] LABS: INR 0.95 (0.87-1.13)
[2017-05-18 20:47] LABS: BUN/Creatinine Ratio 19; Blood Urea Nitrogen 15 mg/dL (7-17); Calcium 9.4 mg/dL (8.4-10.2); Carbon Dioxide 31 mmol/L (22-30); Chloride 98.6 mmol/L (98-107); Glucose 148 mg/dL (65-100); Potassium 4.3 mmol/L (3.6-5.0); Sodium 141 mmol/L (137-145)
[2017-05-18 21:02] LABS: Anion Gap 16 mmol/L
[2017-05-18] MEDS ORDERED: NACL 0.9% 500 ML 500 ML IV ONE (22:34)
[2017-05-19 00:04] VITALS: BP 134/65
== END 2017-05-19 01:00 | disposition home or self-care (01) ==
LOC: ED 18:54
DX: I44.7 Left bundle-branch block, unspecified (principal); R07.2 Precordial pain; I10 Essential (primary) hypertension; E11.9 Type 2 diabetes mellitus without complications; K21.9 Gastro-esophageal reflux disease without esophagitis; M19.90 Unspecified osteoarthritis, unspecified site; G43.909 Migraine, unspecified, not intractable, without status migrainosus
CPT/HCPCS: 36415; 71010; 80048; 84484; 85025; 85379; 85610; 85730; 93005; 93010; 99284; J7040

== ENCOUNTER 2018-12-19 00:13 | Emergency (ER) | payer MEDICARE ==
[2018-12-19] MEDS ORDERED: TORADOL IM ONE (02:13)
--- NOTE | 2018-12-19 02:18 | Emergency Department Report ---
ED Back Pain/Injury HPI - General Chief Complaint: Back Pain/Injury Stated Complaint: LOWER BACK PAIN Time Seen by Provider: 12/19/18 02:12 Source: patient, family Limitations: Physical Limitation - History of Present Illness Initial Comments: pt is a 76 y/o w/f with hx of arthralgia who presents for low back pain radiating to left lower extrem pt denies fall injury or trauma there is no numbnes no paralysis no loss or decrease in bowel or bladder function Complaint: back pain Onset/Timin -: days(s) Similar Symptoms Previously: Yes Place: home Radiation: left leg Severity: moderate Severity scale (0 -10): 5 Quality: burning, sharp Consistency: constant Improves With: none Worsens With: movement, sitting upright, walking Context: unknown Associated Symptoms: denies: numbness, difficulty urinating, incontinence, fever/chills - Related Data Home Medications Medication Instructions Recorded Confirmed Last Taken Donepezil HCl 1 tab PO DAILY 09/18/13 05/14/17 09/22/13 Furosemide 1 tab PO DAILY 09/18/13 05/14/17 09/22/13 Metformin HCl 1 tab PO BID 09/18/13 05/14/17 09/22/13 Potassium Chloride [Klor-Con M20] 1 tab PO DAILY 09/18/13 05/14/17 09/18/13 Memantine [Namenda] 10 mg PO BID 05/14/17 05/14/17 Unknown Previous Rx's Medication Instructions Recorded Last Taken Type Aspirin [Aspirin EC] 81 mg PO DAILY 30 Days tablet. 05/15/17 Unknown Rx Chlorthalidone [Thalitone] 12.5 mg PO QDAY tablet 05/15/17 Unknown Rx Flaxseed Oil [Flax Seed Oil] 1 cap PO DAILY 05/15/17 Unknown Rx Losartan [Cozaar] 100 mg PO QDAY 30 Days tablet 05/15/17 Unknown Rx Conception-3/Dha/Epa/Lut/Zeaxanthin 1 cap PO DAILY 05/15/17 Unknown Rx [[facility] Softgel] Pantoprazole [Protonix TAB] 20 mg PO QDAY tablet. 05/15/17 Unknown Rx Propranolol LA [Inderal LA] 80 mg PO QDAY capsule 05/15/17 Unknown Rx glipiZIDE XL [Glucotrol Xl] 5 mg PO DAILY@0800 tablet 05/15/17 Unknown Rx hydrALAZINE [Apresoline TAB] 100 mg PO TID #90 tab 05/15/17 Unknown Rx Acetaminophen [Acetaminophen TAB] 1,000 mg PO Q6HR PRN #30 tablet 12/19/18 Unknown Rx Diclofenac 1% [Diclofenac 1% 1 applicatio TP QID PRN #1 tube 12/19/18 Unknown Rx topical gel] Nitrofurantoin [place]/M-Cryst 100 mg PO BID 7 Days #14 capsule 12/19/18 Unknown Rx [Macrobid CAP] Allergies Allergy/AdvReac Type Severity Reaction Status Date / Time No Known Allergies Allergy Verified 05/14/17 04:07 ED Review of Systems ROS: Stated complaint: LOWER BACK PAIN Other details as noted in HPI Constitutional: denies: chills, fever Eyes: denies: eye pain, eye discharge, vision change ENT: denies: ear pain, throat pain Respiratory: denies: cough, shortness of breath, wheezing Cardiovascular: denies: chest pain, palpitations Endocrine: no symptoms reported Gastrointestinal: denies: abdominal pain, nausea, diarrhea Genitourinary: denies: urgency, dysuria, discharge Musculoskeletal: back pain, arthralgia, myalgia. denies: joint swelling Skin: denies: rash, lesions Neurological: denies: headache, weakness, paresthesias Psychiatric: denies: anxiety, depression Hematological/Lymphatic: denies: as per HPI, easy bleeding, easy bruising ED Past Medical Hx - Past Medical History Previous Medical History?: Yes Hx Hypertension: Yes ("OVER 20 YRS" PCP) Hx Diabetes: Yes Hx GERD: Yes Hx Arthritis: Yes Hx Headaches / Migraines: Yes (MIGRAINES) Hx Dementia: Yes Additional medical history: malignant melanoma. memory issues - Surgical History Past Surgical History?: Yes Additional Surgical History: mylenoma removed from back. tonsils. hyster - Social History Smoking Status: Never Smoker Substance Use Type: None - Medications Home Medications: Home Medications Medication Instructions Recorded Confirmed Last Taken Type Donepezil HCl 1 tab PO DAILY 09/18/13 05/14/17 09/22/13 History Furosemide 1 tab PO DAILY 09/18/13 05/14/17 09/22/13 History Metformin HCl 1 tab PO BID 09/18/13 05/14/17 09/22/13 History Potassium Chloride [Klor-Con M20] 1 tab PO DAILY 09/18/13 05/14/17 09/18/13 History Memantine [Namenda] 10 mg PO BID 05/14/17 05/14/17 Unknown History Aspirin [Aspirin EC] 81 mg PO DAILY 30 Days tablet. 05/15/17 Unknown Rx Chlorthalidone [Thalitone] 12.5 mg PO QDAY tablet 05/15/17 Unknown Rx Flaxseed Oil [Flax Seed Oil] 1 cap PO DAILY 05/15/17 Unknown Rx Losartan [Cozaar] 100 mg PO QDAY 30 Days tablet 05/15/17 Unknown Rx Conception-3/Dha/Epa/Lut/Zeaxanthin 1 cap PO DAILY 05/15/17 Unknown Rx [[facility] Softgel] Pantoprazole [Protonix TAB] 20 mg PO QDAY tablet. 05/15/17 Unknown Rx Propranolol LA [Inderal LA] 80 mg PO QDAY capsule 05/15/17 Unknown Rx glipiZIDE XL [Glucotrol Xl] 5 mg PO DAILY@0800 tablet 05/15/17 Unknown Rx hydrALAZINE [Apresoline TAB] 100 mg PO TID #90 tab 05/15/17 Unknown Rx Acetaminophen [Acetaminophen TAB] 1,000 mg PO Q6HR PRN #30 tablet 12/19/18 Unknown Rx Diclofenac 1% [Diclofenac 1% 1 applicatio TP QID PRN #1 tube 12/19/18 Unknown Rx topical gel] Nitrofurantoin [place]/M-Cryst 100 mg PO BID 7 Days #14 capsule 12/19/18 Unknown Rx [Macrobid CAP] ED Physical Exam - General Limitations: Physical Limitation General appearance: alert, in no apparent distress - Head Head exam: Present: atraumatic, normocephalic - Eye Eye exam: Present: normal appearance, PERRL, EOMI Pupils: Present: normal accommodation - ENT ENT exam: Present: mucous membranes moist - Neck Neck exam: Present: normal inspection, full ROM. Absent: tenderness, meningismus, lymphadenopathy, thyromegaly - Respiratory Respiratory exam: Present: normal lung sounds bilaterally. Absent: respiratory distress, wheezes, stridor, chest wall tenderness - Cardiovascular Cardiovascular Exam: Present: regular rate, normal rhythm, normal heart sounds. Absent: systolic murmur, diastolic murmur, rubs, gallop - GI/Abdominal GI/Abdominal exam: Present: soft, normal bowel sounds. Absent: distended, tenderness, bruit, hernia - Rectal Rectal exam: Present: deferred - Extremities Exam Extremities exam: Present: normal inspection, full ROM, normal capillary refill. Absent: tenderness, pedal edema, joint swelling, calf tenderness - Back Exam Back exam: Present: normal inspection, full ROM, tenderness (there is no posterior vertebral point tenderness ), muscle spasm, paraspinal tenderness. Absent: CVA tenderness (R), CVA tenderness (L), vertebral tenderness, rash noted - Expanded Back Exam Expanded Back exam: Absent: saddle anesthesia Back exam: Positive Straight Leg Raise: Left, Negative Straight Leg Raising: Right - Neurological Exam Neurological exam: Present: alert, oriented X3, CN II-XII intact, normal gait, reflexes normal. Absent: motor sensory deficit - Expanded Neurological Exam Expanded Patient oriented to: Present: person, place, time Speech: Present: fluid speech Cranial nerves: EOM's Intact: Normal, Gag Reflex: Normal, Tongue Deviation: Normal, Nystagmus: Normal, Facial Sensation: Normal Cerebellar function: Finger to Nose: Normal, Heel to [place]: Normal Upper motor neuron: Sy Neglect: Normal, Pronator Drift: Normal, Sensory Extinction: Normal Motor strength exam: RUE: 5, LUE: 5, RLE: 5, LLE: 5 DTR: knee (R): 2+, knee (L): 2+, ankle (R): 2+, ankle (L): 2+ Best Eye Response ([place]): (4) open spontaneously Best Motor Response ([place]): (6) obeys commands Best Verbal Response ([place]): (5) oriented [place] Total: 15 - Psychiatric Psychiatric exam: Present: normal affect, normal mood - Skin Skin exam: Present: warm, dry, intact, normal color. Absent: rash ED Course Vital Signs 12/19/18 00:15 Temperature 98.1 F Pulse Rate 67 Respiratory 16 Rate Blood Pressure 190/82 O2 Sat by Pulse 98 Oximetry ED Medical Decision Making - Lab Data Labs 12/19/18 03:44 Urine Color Yellow Urine Turbidity Clear Urine pH 8.0 H Ur Specific [place] 1.013 Urine Protein <15 mg/dl Urine Glucose (UA) Neg Urine Ketones Neg Urine Blood Neg Urine Nitrite Neg Urine Bilirubin Neg Urine Urobilinogen < 2.0 Ur Leukocyte Esterase Sm Urine WBC (Auto) 5.0 Urine RBC (Auto) 2.0 U Epithel Cells (Auto) 1.0 - Radiology Data Radiology results: report reviewed, image reviewed Ordering Physician: LEANA PATEL NP Date of Service: 12/19/18 Procedure(s): XR spine lumbosacral 2-3V Accession Number(s): [id number] cc: LEANA PATEL NP Fluoro Time In Minutes: LUMBAR SPINE, AP AND LATERAL VIEWS 12/19/2018 INDICATION / CLINICAL INFORMATION: low back pain. COMPARISON: None available. FINDINGS: Degenerative changes are identified throughout the lumbar spine. No evidence of compression fracture. No spondylolisthesis. Abdominal aorta is calcified without evidence of aneurysm. Signer Name: Andi Guzman MD Signed: 12/19/2018 2:41 AM Workstation Name: [id number] Transcribed By: BOB Dictated By: Andi Guzman MD Electronically Authenticated By: Andi Guzman MD Signed Date/Time: 12/19/18240 DD/ 8 TD/TT: - Medical Decision Making pain improved, lumbar xray : degenerative changes, no fracture no soft tissue abnormalities, ua: pos Leuk plan tx for UTI, Tylenol , voltaren gel, follow up with pcp in 2-3 days return to emergency if symptoms worsen. Critical care attestation.: If time is entered above; I have spent that time in minutes in the direct care of this critically ill patient, excluding procedure time. ED Disposition Clinical Impression: Chronic back pain Qualifiers: Back pain location: low back pain Back pain laterality: left Sciatica presence: with sciatica Sciatica laterality: sciatica of left side Qualified Code(s): M54.42 - Lumbago with sciatica, left side; G89.29 - Other chronic pain UTI (urinary tract infection) Qualifiers: Urinary tract infection type: acute cystitis Hematuria presence: without hematuria Qualified Code(s): N30.00 - Acute cystitis without hematuria Disposition: TO HOME OR SELFCARE Is pt being admited?: No Does the pt Need Aspirin: No Condition: Stable Instructions: Urinary Tract Infection in Women (ED), Chronic Back Pain (ED) Prescriptions: Acetaminophen [Acetaminophen TAB] 1,000 mg PO Q6HR PRN #30 tablet PRN Reason: pain Diclofenac 1% [Diclofenac 1% topical gel] 1 applicatio TP QID PRN #1 tube PRN Reason: pain Nitrofurantoin [place]/M-Cryst [Macrobid CAP] 100 mg PO BID 7 Days #14 capsule Referrals: JORDANA LOWE MD [Primary Care Provider] - 3-5 Days LEVON GUARDADO MD [Staff Physician] - 3-5 Days Forms: Work/School Release Form(ED) Time of Disposition: 04:16
--- NOTE | 2018-12-19 02:46 | XRay Report ---
LUMBAR SPINE, AP AND LATERAL VIEWS 12/19/2018 INDICATION / CLINICAL INFORMATION: low back pain. COMPARISON: None available. FINDINGS: Degenerative changes are identified throughout the lumbar spine. No evidence of compression fracture. No spondylolisthesis. Abdominal aorta is calcified without evidence of aneurysm. Signer Name: Andi Guzman MD Signed: 12/19/2018 2:41 AM Workstation Name: [id number]
[2018-12-19 03:53] LABS: Bilirubin,Urine NEG (Negative); Blood,Urine NEG (Negative); Color,Urine Yellow (Yellow); Protein,Urine <15 mg/dL mg/dL (Negative); Urobilinogen,Urine < 2.0 mg/dL (<2.0)
[2018-12-19 05:10] VITALS: BP 164/75
== END 2018-12-19 04:20 | disposition home or self-care (01) ==
LOC: ED 00:13
DX: M54.5 Low back pain (principal); G89.29 Other chronic pain; N39.0 Urinary tract infection, site not specified; I10 Essential (primary) hypertension; E11.9 Type 2 diabetes mellitus without complications; K21.9 Gastro-esophageal reflux disease without esophagitis; M19.90 Unspecified osteoarthritis, unspecified site; G43.909 Migraine, unspecified, not intractable, without status migrainosus; F03.90 Unspecified dementia, unspecified severity, without behavioral disturbance, psychotic disturbance, mood disturbance, and anxiety; Z90.49 Acquired absence of other specified parts of digestive tract; Z90.710 Acquired absence of both cervix and uterus; Z79.899 Other long term (current) drug therapy
CPT/HCPCS: 72100; 81001; 96372; 99284; J1885